=== PATIENT | male | born 1940 | race Caucasian/White ===

== ENCOUNTER 2019-10-31 16:00 | Inpatient (IN) | payer OTHER ==
[~2019-10-31] VITALS: Ht 157.5 cm; Wt 62.2 kg
[2019-10-31 17:57] VITALS: BP 154/83
--- NOTE | 2019-10-31 18:24 | NUR ---
PT. ARRIVED VIA AMBULANCE FROM [facility] IN [place], [place]. PT. HAS DEMENTIA AND HAS BEEN THREATENING HIS . HIS DOES NOT FEEL SAFE ANY LONGER AND WANTS THE PT. EVALUATED. 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 HIS IS THE DPOA. HE DOES NOT HAVE ANY DRUG ALLERGIES. HE STATES HE DOES HAVE SOME HALLUCINATIONS, USUALLLY PEOPLE,BUT WAS NOT MORE SPECIFIC. HE WAS COVID 19 NEGATIVE. HIS BELONGINS FROM HIS POCKETS AND SHOES WERE TAKEN. HE HAD A CANE THAT WAS TAKEN AND HE WAS GIVEN AN GIVEN A WALKER. HE IS ORIENTED TIMES ONE OR TWO.
[2019-10-31] MEDS ORDERED: CEFPODOXIME PR200 M1 PO (19:50)
[2019-10-31] MEDS ORDERED: LEVAQUIN 500 M500 M3 PO (19:50)
[2019-10-31] MEDS ORDERED: PLAVIX 75 MG TA75 MG PO (19:51)
[2019-10-31] MEDS ORDERED: FLOMAX0.4 MG PO (19:56)
[2019-10-31] MEDS ORDERED: CELEXA 20 MG TA20 MG PO (19:56)
[2019-10-31] MEDS ORDERED: CARBIDOPA-LEVO1 EAC9 PO (19:57)
[2019-10-31] MEDS ORDERED: LIPITOR80 MG PO (19:58)
[2019-10-31] MEDS ORDERED: ARICEPT10 M1 PO (19:58)
[2019-10-31] MEDS ORDERED: ESOMEPRAZOLE MA40 MG PO (19:59)
[2019-10-31] MEDS ORDERED: NAMENDA 5 MG TAB5 M1 PO (20:00)
[2019-10-31] MEDS ORDERED: METOPROLOL TART25 MG PO (20:00)
[2019-10-31] MEDS ORDERED: OXYBUTYNIN 5 MG5 M2 PO (20:01)
[2019-10-31] MEDS ORDERED: NAPRELAN375 MG PO (20:02)
[2019-10-31] MEDS ORDERED: OMEGA 3-6-9 11200 M1 PO (20:03)
[2019-10-31] MEDS ORDERED: MULTIVITAMINS1 EAC7 PO (20:03)
[2019-10-31] MEDS ORDERED: VITAMIN D325 MC1 PO (20:08)
[2019-10-31 20:09] VITALS: BP 140/90
[2019-10-31] MEDS ORDERED: VITAMIN B-6100 MG PO (20:09)
[2019-10-31] MEDS ORDERED: VITAMIN E1000 UNIT PO (20:09)
[2019-10-31] MEDS ORDERED: VITAMIN C1000 MG PO (20:10)
[2019-10-31] MEDS ORDERED: FENOFIBRATE134 MG PO (20:11)
--- NOTE | 2019-10-31 23:55 | NUR ---
Pt was in his room at time of assessment. Pt is oriented to person and place, otherwise pleasantly confused and forgetful. Pt was calm and cooperative with assessment. Pt denies anxiety and/or depression. Pt denies SI/HI/VH/AH. Pt does not remember last BM. Pt denies pain. Pt took meds whole. Pt amnbulates with walker. Bruises to BUE. Pt changed and now in hospital pants. Pt's personal belongings to be stored per protocol. Pt currently in bed sleeping. Will continue to monitor.
[2019-11-01 07:33] VITALS: BP 155/95
[2019-11-01 11:38] VITALS: BP 155/95
--- NOTE | 2019-11-01 14:13 | NUR ---
PATIENT WAS IN BED SLEEPING WHEN CARE ASSUMED. HE WAS WOKEN-UP FOR BREAKFAST. APPETITE IS GOOD, CONSUMED 100% OF BREAKFAST, AND 100% LUNCH. PATIENT IS ALERT, AND ORIENTED X 1-2 (PLACE/TIME) WITH PERIODS OF FORGETFULNESS, AND CONFUSSION. PATIENT AMBULATES WITH ASSIST OF ROLLER WALKER, GAIT UNSTEADY. VISIBLE TREMORS NOTED TO DUANE UPPER EXTREMITY. PATIENT DENIES SUICIDAL/HOMICIDAL IDEATION "WHY WOULD I DO THAT" HE IS NOT ABLE TO APPROPRIATELY RESPOND TO FURTHER ASESSMENT QUESTIONS DUE TO COGNITIVE IMPAIRMENT. PATIENT GETS LOST INTERMITTENTLY, REQUIRES STAFF ASSIST TO FIND HIS ROOM. PATIENT DENIES HAVING PHYSICAL PAIN. AFFECT FLAT/BLUNTED, MOOD IS CALM. NO AGGRESSION OR AGITATION NOTED AT THIS TIME. PATIENT TOOK ALL MEDICATION WHOLE WITHOUT DIFFICULTY. NO SIGN OF ACUTE DISTRESS NOTED AT THIS TIME, WILL MONITOR FOR SAFETY.
[2019-11-01 19:57] VITALS: BP 125/69
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
--- NOTE | 2019-11-02 11:34 | NUR ---
Ambulating with walker with slow, steady gait. Alert to name and situation only. States, "My mind isn't working right today." Calm and cooperative, compliant with meds, took whole with H2O. Denies SI/HI. Breath sounds clear. Reg HR auscultated. Color pink with brisk capillary refill and palpable peripheral pulses. No edema noted. Voided per toilet, cecille colored urine. Active bowel sounds over soft, rounded abdomen. Independent with breakfast, ate most of meal. Sitting in dayroom with peers without s/o distress most of AM.
--- NOTE | 2019-11-02 12:13 | NUR ---
JESSICA spoke with Pt's , Quiana concerning choices for memory care facilities. Quiana asked SW to search [facility], [facility] and [facility]. SW asked Quiana if Pt has [place] mediciad. Quiana stated Pt did not and she was not sure if he could qualify. Jessica informed an application request can be sent to [facility] [employer] in order to apply on Pt's behave. Quiana was in agreement with this. JESSICA sent referral to [facility].
[2019-11-02 13:12] VITALS: BP 133/64
[2019-11-02 19:48] VITALS: BP 114/58
--- NOTE | 2019-11-02 22:05 | NUR ---
Pt was in his room on his bed at time of assessment. Pt oriented to self. Confused and forgetful. Pt was pleasant and cooperative with assessment. Pt denied pain, anxiety and/or depression. Pt denied SI/HI/AH/VH. Pt came out to the dayroom and sat for about an hour. Pt took meds whole without issues. Pt currently in his bed sleeping. Fall precaution in place. Will continue to monitor.
[2019-11-03 07:41] VITALS: BP 138/81
--- NOTE | 2019-11-03 09:22 | NUR ---
JESSICA initated the Medicaid application with [employer] - Kandy [phone] on behalf of the pt
[2019-11-03 10:59] VITALS: BP 138/81
--- NOTE | 2019-11-03 14:43 | NUR ---
PATIENT WAS UP, SITTING IN DAYROOM WHEN CARE ASSUMED. HE AMBULATES WITH ASSIST OF ROLLER WALKER, GAIT UNSTEADY. PATIENT TOOK ALL MEDICATION WHOLE WITHOUT DIFFICULTY. PATIENT IS EATING MEALS, AND DRINKING FLUID WELL. PATIENT DEMIES SUICIDAL/HOMICIDAL IDEATIION. HE IS NOT ABLE TO APPROPRIATELY RESPOND FURTHER ASSESSMENT QUESTIONS. VISIBLE TREMOR NOTED TO DUANE UPPER EXREMITIES. AFFECT IS FLAT/BLUNTED, MOOD IS CALM. PATIENT IS CONTINENT OF B&B, ENCOURAGED TO NOTIFY NURSE WHEN NEEDING TO AMBULATE OR USE THE RESTROOM. ALL FALL PROTOCOL IN PLACE. PATIENT PARTICIPATES IN GROUP THERAPY, CURRENTLY IN BED RESTING, NO SIGN OF ACUTE DISTRESS NOTED AT THIS TIME, WILL MONITOR FOR SAFETY.
[2019-11-03 19:30] VITALS: BP 103/73
--- NOTE | 2019-11-04 04:01 | NUR ---
Assumed care of pt @ 1900. Pt calm et cooperative with [facility] this shift. Took medications whole without difficulty. Ambulates the halls with somewhat steady gait with assistance of walker. Socialized with peers in dayroom until HS. VSWNL. Health assessment with no abnormalities noted at present time. Denies SI/HI at present time. Currently resting in bed with eyes closed. Will continue to monitor per protocol.
[2019-11-04 08:20] VITALS: BP 144/73
--- NOTE | 2019-11-04 08:44 | NUR ---
PT SITTING IN DINING ROOM. PT FORGETFUL AND ORIENTED TO SELF ONLY. PT DIDN'T KNOW WHERE HE WAS OR WHAT DAY IT WAS. PT LUNGS CLEAR. PT COOROPERATIVE WITH MEDICATIONS. PT HAS BRUISING TO ARMS BILATERAL. PT DID TALK ABOUT FARMING. PT DOES SMILE WITH STAFF.
[2019-11-04 09:12] VITALS: BP 155/99
--- NOTE | 2019-11-04 16:01 | NUR ---
PT GETTING A SHOWER AT THIS TIME. PT USING WALKER TO AMBULATE.
[2019-11-04 18:46] VITALS: BP 149/84
[2019-11-04 21:38] VITALS: BP 149/84
--- NOTE | 2019-11-04 22:26 | NUR ---
0 RESUMMED CARE FROM DAY SHIFT THIS EVENING, PATIENT IN ROOM SITTING QUIET. PATIENT IS ORIENTED TIMES SELF DID NOT KNOW WHERE HE IS OR WHAT YEAR OR DAY. PATIENT DENIES SI/HI/AH/VH AT PRESENT PATIENTS ABDOMEN SOFT ROUND BOWEL SOUNDS PRESENT. PATIENT USES A WALKER TO HELP WITH GAIT HE IS QUIET COOPERATIVE CALM. WILL CONTINUE TO MONITOR PATIENT FOR BEHAVIORS AND SAFETY.
--- NOTE | 2019-11-05 00:33 | NUR ---
ASSUMED CARE OF PATIENT AT APPROXIMATELY 0015, PATIENT IN BED WITH EYES CLOSED, NO S/S OF DISTRESS. RR EVEN AND UNLABORED, NO S/S OF PAIN. WILL MAINTAIN Q12 CHECKS TO ENSURE SAFETY AT ALL TIMES.
--- NOTE | 2019-11-05 07:00 | NUR ---
PT STANDING BY HIS ROOM AND LOOKING FOR HIS . PT STATED HIS WAS IN BED WITH HIM AT 0200. PT ORIENTED TO PERSON ONLY. PT HAS TREMORS TO ARMS. BRUISES NOTED TO ARMS. PT ENCOURAGED TO GO OUT TO DINING ROOM TO GET COFFEE. PT STAYED BY DOOR WITH WALKER.
[2019-11-05 07:41] VITALS: BP 92/57
[2019-11-05 08:30] VITALS: BP 92/57
--- NOTE | 2019-11-05 08:43 | NUR ---
PT TOOK MEDS WITHOUT ANY ISSUES. PT EATING BREAKFAST. PT LUNGS CLEAR. NO SOB. NO BM NOTED SINCE 10/30. PT DENIES ANY PAIN.
--- NOTE | 2019-11-05 14:00 | NUR ---
PT IN BED AT THIS TIME. PT WAS FALLING ASLEEP WITH HEAD ON TABLE IN DINING ROOM.
--- NOTE | 2019-11-05 14:30 | NUR ---
PT FAMILY CALLED TO TALK TO HIM. PT SLEEPING AT THIS TIME. PT UNABLE TO TAKE 1500 MED DUE TO SLEEPING.
--- NOTE | 2019-11-05 17:41 | NUR ---
ADM TYLENOL 325MG 2 TABS PO FOR PAIN TO KNEES. PT STATED PAIN IS BETTER THAT HE IS SITTING. PT PAIN WHEN WALKING IS A 4 ON 1-10 SCALE.
[2019-11-05 20:39] VITALS: BP 135/77
[2019-11-05 22:10] VITALS: BP 135/77
--- NOTE | 2019-11-06 02:42 | NUR ---
Assumed care of patient this pm shift. Patient sitting in the mileu with peers. Patient in good spirits, calm and cooperative. Patient denies pain. Patient denies hi/si. Patient takes medications whole with thin fluids. Patient is a falls risk and ambulates with walker. Patients gait without walker is uneven. Patient shows no signs of aggressive behaviors. Patient shows no signs of acute distress. Patients assessment shows clear breath sounds, active bowel sounds, and s1 s2 heard with auscultation. Patient is alert and oriented x2-3. Patient is oriented to self, place, and time. We will continue to monitor per hospital protocol.
[2019-11-06 08:52] VITALS: BP 140/88
[2019-11-06 09:24] VITALS: BP 140/88
--- NOTE | 2019-11-06 12:25 | NUR ---
JESSICA spoke with Kandy with [employer] who said she did speak with pt's and needs to f/u with on the Medicaid mami with [employer]. She said she will call SW back. SW team will continue to follow pt during his stay on this unit.
--- NOTE | 2019-11-06 16:14 | NUR ---
DYSPHORIC MOOD-IRRITABLE AND ABRUPT IN RESPONSES-SITS IN DAYROOM BUT LITTLE NOTED INTERACTION WITH PEER GROUP.DENIES SI.SH/HI. ORIENTED TO NAME ONLY-APPEARS UNKEMPT BUT RESISITVE WITH OFFERS OF NURSING SELF TO ASSIST IN ADLS.DENIES C/O PAIN/DISCOMFORT. GAIT STEADY WITH USE OF ROLLER WALKER.
[2019-11-06 18:30] LABS: HEMATOCRIT 45.5 % (42.0-52.0); HEMOGLOBIN 15.2 gm/dL (14.0-18.0); MCH 30.5 pg (26.0-34.0); MCHC 33.5 g/dL (28.0-37.0); MCV 91.1 fL (80.0-100.0); RDW 15.1 % (10.5-14.5); WBC 6.2 thou/uL (4.0-11.0)
[2019-11-06 18:39] LABS: CREATININE 1.4 mg/dL (0.7-1.3); POTASSIUM 3.7 mmol/L (3.5-5.1)
[2019-11-06 19:18] LABS: TSH 3.431 uIU/mL (0.358-3.740)
[2019-11-06 19:34] VITALS: BP 127/79
--- NOTE | 2019-11-06 23:52 | NUR ---
Pt oriented to self. Confused. Forgrtful. Delusional and tangential in thinking. Pt was in his room at time od assessment. Pt was getting restless and impulsive, wandering around his room, and voiced being "flustered". 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 Pt was able to calm down and stay in his bed afterwards. Pt took meds whole. Pt currently in hid bed sleeping. Fall precautions in place. Will continue to monitor.
[2019-11-07 07:42] VITALS: BP 121/80
--- NOTE | 2019-11-07 10:57 | NUR ---
OFFERS BRIEF ABRUPT YES/NO RESPONSES OR REFUSES TO RESPOND DURING AM ASSESSMENT,MED PASS. ANGRY FACIAL EXPRESSION BUT UNABLE/UNWILLING TO ARTICULATE SOURCE OF FRUSTRATION STATING "OH FORGET IT BEFORE WALKING AWAY FROM STAFF" DID TAKE AM MEDS WITHOUT DIFFICULTY. DENIES PAIN. GAIT IS UNSTEADY AT TIMES ANF WILL OCCASSIONALLY REFUSE TO USE ROLLER WALKER. HIGH FALLS PRECAUTIONS CONTINUE. ORIENTED TO NAME ONLY WHEN ASKED WHERE HE WAS STATES "[facility]"
--- NOTE | 2019-11-07 15:43 | NUR ---
RT Progress Note- Graham's participation in recreation groups is variable. He becomes irritable at times and does not participate nor respond verbally other than in short yes/no answers. His topics of conversation are no longer extremely religiously based.
[2019-11-07 19:11] VITALS: BP 105/65
--- NOTE | 2019-11-08 04:05 | NUR ---
Pt oriented to person, confused, forgetful. Pt was in his room at time of assessment. Pt denies anxiety and/or depression. Pt denied SI/HI/AH/VH. Pt's dtr called and talked with pt. Pt's dtr also talking with nursing for update on pt. Pt's dtr voiced that pt's would like the doctor to call her with update of what the skilled nursing plan would be and if pt will be needing to live in a facility. Pt took meds whole. Pt currently sleeping in his bed. Fall precaution in place. Will continue to monitor.
--- NOTE | 2019-11-08 09:22 | NUR ---
PATIENT WAS UP, AND OUT IN THE DAY ROOM, TOOK MORNING MEDICATION WHOLE WITHOUT DIFFICULTY. SHORTLY AFTER BREAKFAST, PATIENT STARTED HALLUCINATION, BECAME DELUSIONAL FIGHTENED, THINKS PEOPLE ARE OUT TO GET HIM. "PEOPLE ARE ABOUT TO KILL ME", STARTED TO ATTEMPT TO USE HIS WALKER TO DEFEND HIMSELF, LIFTING UP WALKER, THREATENING STAFF, USING THE WALKER AGAINST PEER'S GERICHAIR, BECAME VERY DIFICULT TO VERBALLY REDIRECT, AND VERY UNSTEADY. IT TOOK TWO STAFF TO ASSIST PATIENT ON A SITTING POSITION TO PREVENT FALL.
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
[2019-11-08 12:34] VITALS: BP 105/77
--- NOTE | 2019-11-08 12:41 | NUR ---
JESSICA contacted Kandy with [employer] who said Clari did get all the information she needed yesterday from pt's , and will be submitting the application soon. JESSICA team will continue to follow pt during his stay on this unit.
[2019-11-08 15:05] LABS: URINE BILIRUBIN NEGATIVE (Negative); URINE BLOOD NEGATIVE (Negative); URINE CLARITY CLEAR; URINE COLOR YELLOW; URINE GLUCOSE-RANDOM* NEGATIVE (Negative); URINE KETONES NEGATIVE (Negative); URINE LEUKOCYTES-REFLEX NEGATIVE (Negative); URINE NITRITE-REFLEX NEGATIVE (Negative); URINE PROTEIN (DIPSTICK) NEGATIVE (Negative); URINE SPECIFIC GRAVITY 1.025 (1.005-1.035); URINE UROBILINOGEN 0.2 E.U./dl (0.2-1.0)
[2019-11-08 18:52] LABS: BASOPHILS 0.8 % (0.0-2.0); EOSINOPHILS 1.5 % (0.0-3.0); HEMATOCRIT 44.8 % (42.0-52.0); HEMOGLOBIN 15.2 gm/dL (14.0-18.0); MCH 30.8 pg (26.0-34.0); MCHC 33.9 g/dL (28.0-37.0); MCV 90.9 fL (80.0-100.0); MONOCYTES 10.3 % (1.0-8.0); PLATELET COUNT 212 thou/uL (150-400); POLYS 75.4 % (36.0-66.0); RBC 4.93 mil/uL (4.50-6.00); WBC 6.7 thou/uL (4.0-11.0)
[2019-11-08 18:55] LABS: CALCIUM 9.2 mg/dL (8.5-10.1); CREATININE 1.5 mg/dL (0.7-1.3); POTASSIUM 4.2 mmol/L (3.5-5.1)
--- NOTE | 2019-11-08 19:21 | NUR ---
Care of patient assumed at 1915. Patient is sitting in the day room in a wheelchair. Per report, patient was placed in wheelchair due to aggressive behavior with the walker he was given. Upon approach, patient is pleasant and jovial. Cannot express what he finds humorous. Cooperative with assessment. Oriented to self only. HS, LS, BS all WNL. Compliant with HS meds. For the next 2 hours patient scoots around the day room in the wheelchair, taking his shirt off. Cooperative with assistance to get his shirt back on, only to remove it again a short time later. Just before midnight patient is assisted to bed.
[2019-11-08 19:54] VITALS: BP 134/78
[2019-11-09 09:38] VITALS: BP 165/99
--- NOTE | 2019-11-09 10:38 | NUR ---
1015 RESUMMED CARE FROM OVERNIGHT SHIFT THIS AM, PATIENT IN DAY ROOM QUIET. PATIENT ATE BREAKFAST SPIT OUT MEDICATION AND BEING COMBATIVE WHEN TRING TO HELP FEED PATIENT. PATIENT IS ORIENTED TO SELF ONLY ABD CARMELA TELL YOU SI/HI/AH/VH AT PREESENT DUE TO COGNITIVE DISORDER, WILL CONTINUE TO [facility] FOR SAFETY AND BEHAVIORS.
--- NOTE | 2019-11-09 12:20 | NUR ---
JESSICA followed up with [employer] on pt's application. Kandy told JESSICA she or Clari will send a copy of pt's application to her. JESSICA contacted Quiana to follow-up on referral options. Quiana said she did not get the email. JESSICA resent it and advised her to check her spam mail. SW team will continue to follow pt during his stay on this unit.
--- NOTE | 2019-11-09 19:21 | NUR ---
Care of patient assumed at 191. Patient is sitting in wheel chair in the hallway as a code red has just been called. Patient is drowsy and confused. Oriented to self only. Mumbles responses to assessment questions unitelligibly. Lap shannan in place at this time. At 2029 patient is med compliant after several attempts. While sitting in the hallway, patient is restless, struggling to get out of the wheel chair, sliding down and trappin ghis arm in the armrest. When assisted to bed at 2144 it is noted that patient has skin tears on left elbow and right hand. Tears are cleansed and covered with gauze secured by tape. While placing patient in bed, he is combative, hitting and kicking at staff as we try to get his soiled brief changed.
[2019-11-10 07:24] VITALS: BP 137/72
[2019-11-10 08:30] VITALS: BP 137/72
--- NOTE | 2019-11-10 08:56 | NUR ---
PT HAS TREMORS TO UPPER EXT, LOWER EXT, AND MOUTH. PT UNABLE TO FEED SELF. PT UNABLE TO WALK AT THIS TIME. PT IN KRISTIAN CHAIR WITH LAP KALEN FOR SAFETY. PT LUNGS CLEAR. PT HAS SKIN TEAR TO RT HAND WITH GAUZE AND KERLEX, RT AND LEFT ELBOW. PT SKIN IS THIN AND BRUISED. SCABS TO RT AND LEFT STEVENS. PT DOES TRY TO HIT WITH CARES.
--- NOTE | 2019-11-10 11:17 | NUR ---
PT HAS LORAZEPAM ORDERED NOW, CRUSHED AND PUT IN ICE CREAM. PT DIDN'T HAVE ISSUES WITH SWALLOWING.
--- NOTE | 2019-11-10 15:56 | NUR ---
Pt was unable to participate in gorups today due to sleepiness
--- NOTE | 2019-11-10 16:39 | NUR ---
JESSICA and Dr. Lucero spoke with Quiana regarding pt qualifying now for hospice/hospice house care. Quiana chose [facility]. JESSICA contacted [facility] and obtained the fax number to send a referral. JESSICA sent the referral. Destin told JESSICA she may not be able to review and assess until tomorrow. JESSICA team will continue to follow pt during his stay on this unit.
--- NOTE | 2019-11-10 17:04 | NUR ---
PT DID TAKE 1700 MEDS IN THICKENED ICE CREAM. PT DID SWALLOW WITHOUT ANY COUGH.
--- NOTE | 2019-11-10 18:45 | NUR ---
ADM LORAZEPAM 0.5MG/ML PO FOR AGGITATION. PT TRANSFERED TO BED FROM [facility]. PT WAS KICKING WITH CHANGE. PT INCON. OF URINE X2 TODAY.
--- NOTE | 2019-11-10 19:21 | NUR ---
Care of patient assumed at 1915. Patient is in bed, lying sideways and has stripped off his brief. Bedding is saurated with urine. Day shift nurse assits this nurse with cleaning patient and changing bedding. Patient had just received 0.5mg of Ativan oral solution and is still having what appears to be seizure activity. Provider is notified of this and orders received for additional 1mg Ativan IM for continued seizure activity or agitation if oral solution is not effective. Patient calms significantly while orders being entered and additional Ativan is not deemed neccessary at this time. Unable to perform assessment as patient is not responsive to questions, and presumed seizure activity prevents assessment of HS, LS, and BS. Unable to gain medication compliance for HS meds. At 0050 patient is seen to be having seizure activity again and Ativan oral solution is again administered. Patient is resting quietly at 0200.
[2019-11-10 20:07] VITALS: BP 156/75
[2019-11-11 07:40] VITALS: BP 138/77
[2019-11-11 09:14] VITALS: BP 138/77
--- NOTE | 2019-11-11 09:38 | NUR ---
ASSUMED CARE AT 0700 THIS MORNING. PT. IN BED SUPINE, LAYING CROSSWISE. HE HAS A BRIEF ON. HE IS WET. PCT ASSISTED IN CLEANING PT. UP. SKIN MOISTURE BARRIER ON HIS HIPS AND BUTTOCKS TO HELP WITH NOT BREAKING SKIN DOWN. PT. DID NOT REPLACE BRIEFS ON PT. TO HELP WITH THE SKIN NOT BREAKING DOWN. CHANGED HIS BED, BUT HIM ON HIS LEFT SIDE BUT HE IS WIGGLING HIS WAY OFF THAT. PT. IS IN ROOM ACROSS FROM THE RUST STATION SO STAFF CAN VISUALIZE HIM. HE TOOK HIS MORNING MEDICATIONS WITHOUT DIFFICULTY NOTED. HE DID NOT EAT BREAKFAST HE WAS COMBATIVE WITH IT.
[2019-11-11] MEDS ORDERED: MSL20MG/ML SUBLING ×2 (12:06→12:07)
[2019-11-11] MEDS ORDERED: ACETAMINOP160 MG/54 PO (12:09)
[2019-11-11] MEDS ORDERED: Atropine 1% Eye Drop SUBLING (12:10)
[2019-11-11] MEDS ORDERED: LORAZEPAM I2 MG/1 M2 PO (12:10)
[2019-11-11] MEDS ORDERED: MAG-AL PLUS SUS30 ML PO (12:10)
--- NOTE | 2019-11-11 13:56 | NUR ---
SW spoke to pt's and informed her pt will discharge today at 1500. JESSICA arranged stretcher transportation via [facility] [phone] to [facility] [phone]. Treatment team notified.
== END 2019-11-11 17:00 | disposition hospice, home (50) | DRG 57 ==
LOC: SBH
PROVIDERS: Hospitalist; ADMIT Psychiatry & Neurology Psychiatry; ATTEND Psychiatry & Neurology Psychiatry
DX: G20 Parkinson's disease (principal); F01.51 Vascular dementia, unspecified severity, with behavioral disturbance; F02.81 Dementia in other diseases classified elsewhere, unspecified severity, with behavioral disturbance; F29 Unspecified psychosis not due to a substance or known physiological condition; I25.10 Atherosclerotic heart disease of native coronary artery without angina pectoris; I10 Essential (primary) hypertension; E78.5 Hyperlipidemia, unspecified; Z51.5 Encounter for palliative care; Z95.1 Presence of aortocoronary bypass graft
CPT/HCPCS: 10880